=== PATIENT | female | born 1975 | race Two or more races ===

== ENCOUNTER 2016-07-21 13:00 | Emergency (ER) | payer MEDICAID ==
[~2016-07-21] VITALS: Ht 157.5 cm; Wt 85.0 kg
[~2016-07-21 13:00] MED LIST: NAPR500 PO; Z.0.NO CURRENT MEDS
[2016-07-21 13:02] VITALS: BP 122/79; PULSE 84; RESP 16; TEMP 97.7; O2SAT 95
== END 2016-07-21 16:00 | disposition left against medical advice (07) ==
LOC: NED 13:00
DX: R68.89 Other general symptoms and signs (principal)
CPT/HCPCS: 99281

== ENCOUNTER 2017-06-13 22:19 | Emergency (ER) | payer MEDICAID ==
[~2017-06-13] VITALS: Ht 162.6 cm; Wt 88.0 kg
[2017-06-13 22:21] VITALS: BP 131/76; PULSE 100; RESP 16; TEMP 99.1; O2SAT 98
[2017-06-14] MEDS ORDERED: FAMOTIDINE 20 MG/2 ML VIAL IV PUSH ONE (01:30)
[2017-06-14] MEDS ORDERED: SUCRALFATE 1 GM TAB PO ONE ×2 (01:30→02:45)
[2017-06-14] MEDS ORDERED: SODIUM CHLORIDE 0.9% FLUSH 10 ML FLUSH IV FLUSH PRN (01:30)
[2017-06-14] MEDS ORDERED: ONDANSETRON HCL 4 MG/2 ML VIAL IVP ONE (01:30)
[2017-06-14] MEDS: ALUMINUM/MAGNESIUM/SIMETH 30 ML CUP PO ONE ×2 (01:42→02:06)
[2017-06-14] MEDS: LIDOCAINE VISCOUS 2% SOLN 15 ML UDC PO ONE ×2 (01:42→02:06)
[2017-06-14 02:17] LABS: AUTOMATED NEUTROPHIL # 5.1 TH/MM3 (1.8-7.7); BASOPHIL % 0.6 % (0.0-2.0); EOSINOPHIL # 0.3 TH/MM3 (0-0.4); EOSINOPHIL % 3.3 % (0.0-4.0); HEMATOCRIT 35.9 % (35.0-46.0); HEMOGLOBIN 12.6 GM/DL (11.6-15.3); LYMPHOCYTE # 1.7 TH/MM3 (1.0-4.8); MEAN CELL VOLUME 87.9 FL (80.0-100.0); MEAN CORPUSCULAR HEMOGLOBIN 30.8 PG (27.0-34.0); MONO % 11.6 % (0.0-8.0); MONOCYTE # 0.9 TH/MM3 (0-0.9); NEUT % 63.5 % (16.0-70.0); PLATELET COUNT 310 TH/MM3 (150-450); RED BLOOD COUNT 4.09 MIL/MM3 (4.00-5.30); RED CELL DISTRIBUTION WIDTH 13.1 % (11.6-17.2)
[2017-06-14 02:20] VITALS: BP 106/55; PULSE 77; RESP 20; O2SAT 98
[2017-06-14 02:41] LABS: ALT (GPT) 15 U/L (10-53); AST (GOT) 9 U/L (15-37); BICARBONATE 23.6 MEQ/L (21.0-32.0); BLOOD UREA NITROGEN 6 MG/DL (7-18); CALCIUM 8.7 MG/DL (8.5-10.1); CHLORIDE 102 MEQ/L (98-107); CREATININE 0.42 MG/DL (0.50-1.00); GLOMERULAR FILTRATION RATE 167 ML/MIN (>89); GLUCOSE,RANDOM 97 MG/DL (74-106); LIPASE 91 U/L (73-393); SODIUM (NA) 134 MEQ/L (136-145)
[2017-06-14 02:42] LABS: ALKALINE PHOSPHATASE 64 U/L (45-117); TOTAL BILIRUBIN ADULT 0.2 MG/DL (0.2-1.0); TOTAL PROTEIN 7.5 GM/DL (6.4-8.2)
[2017-06-14] MEDS ORDERED: FAMO1TAB37 PO (02:53)
[2017-06-14] MEDS ORDERED: CARA1SUS3 PO (02:53)
--- NOTE | 2017-06-14 02:53 | PD ---
HPI . Epigastric pain Chief Complaint: Complaint Time Seen by Provider: 00:57 Travel History International Travel<30 days: No Contact w/Intl Traveler<30days: No Traveled to known affect area: No History of Present Illness HPI 41-year-old female who is 8 weeks , notes having severe epigastric burning is keeping her up at night for the past several nights, patient has an acid taste in her mouth as well. Pain is worse with lying down. Patient has tried oral antacids with little relief. Patient denies any hematemesis melena or hematochezia. Patient also denies yohana vomiting, denies fever chills sweats. No vaginal discharge or bleeding. Pain is sharp burning nonradiating PFSH Past Medical History Narrative Medical Past medical history reviewed Heart Rhythm Problems: Yes (ARRTHYMIA, UNKNOWN) Cardiac Catheterization: No High Cholesterol: No Congestive Heart Failure: No Diabetes: No (HYPOGLYCEMIA) Diminished Hearing: No Heparin Induced Thrombocytopen: No Hypertension: No ?: Not : 7 Para: 7 Past Surgical History Abdominal Surgery: Yes (LT OVARY REMOVED) Coronary Artery Bypass Graft: No Gynecologic Surgery: Yes (CONE AND LEEP ) Family History Family Myocardial Infarction: Yes (GRANDFATHER) Social History Alcohol Use: No Tobacco Use: No Substance Use: No Allergies-Medications (Allergen,Severity, Reaction): Coded Allergies: No Known Allergies (Unverified , 02/03/14) Reported Meds & Prescriptions Reported Meds & Active Scripts Active No Active Prescriptions or Reported Medications Narrative Medication Allergies and medications reviewed Review of Systems Except as stated in HPI: all other systems reviewed are Neg General / Constitutional: No: Fever Eyes: No: Visual changes HENT: No: Headaches Cardiovascular: No: Chest Pain or Discomfort Respiratory: No: Shortness of Breath Gastrointestinal: Positive: Nausea, Abdominal Pain, No: Vomiting, Diarrhea, Hematemesis, Hematochezia, Constipation Genitourinary: No: Dysuria Musculoskeletal: No: Pain Skin: No Rash Neurologic: No: Weakness Psychiatric: No: Depression Endocrine: No: Polydipsia Hematologic/Lymphatic: No: Easy Bruising Physical Exam Narrative GENERAL: Awake alert oriented 3 no acute distress SKIN: Warm and dry. Color is normal no diaphoresis cyanosis or pallor HEAD: Atraumatic. Normocephalic. EYES: Pupils equal and round. No scleral icterus. No injection or drainage. ENT: No nasal bleeding or discharge. Mucous membranes pink and moist. NECK: Trachea midline. No JVD. Supple full range of motion CARDIOVASCULAR: Regular rate and rhythm. S1-S2 no murmurs rubs or gallops RESPIRATORY: No accessory muscle use. Clear to auscultation. Breath sounds equal bilaterally. GASTROINTESTINAL: Abdomen soft, non-tender, nondistended. Hepatic and splenic margins not palpable. MUSCULOSKELETAL: Extremities without clubbing, cyanosis, or edema. No obvious deformities. NEUROLOGICAL: Awake and alert. No obvious cranial nerve deficits. Motor grossly within normal limits. Five out of 5 muscle strength in the arms and legs. Normal speech. PSYCHIATRIC: Appropriate mood and affect; insight and judgment normal. Data Data Last Documented VS Vital Signs Date Time Temp Pulse Resp B/P (MAP) Pulse Ox O2 Delivery O2 Flow Rate FiO2 06/14/17 02:20 77 20 106/55 (72) 98 Room Air 06/13/17 22:21 99.1 Orders Orders Complete Blood Count With Diff (06/14/17 01:16) Comprehensive Metabolic Panel (06/14/17 01:16) Lipase (06/14/17 01:16) Iv Access Insert/Monitor (06/14/17 01:16) Ecg Monitoring (06/14/17 01:16) Oximetry (06/14/17 01:16) Ondansetron Inj (Zofran Inj) (06/14/17 01:30) Sodium Chloride 0.9% Flush (Ns Flush) (06/14/17 01:30) Famotidine Inj (Pepcid Inj) (06/14/17 01:30) Al-Mag Hy-Si 40-40-4 Mg/Ml Liq (Mag-Al P (06/14/17 01:30) Lidocaine 2% Viscous (Xylocaine 2% Visco (06/14/17 01:30) Ed Urine Pregnancytest Poc (06/14/17 01:16) Sucralfate (Carafate) (06/14/17 01:30) Labs Laboratory Tests Test 06/14/17 01:38 White Blood Count 8.0 TH/MM3 Red Blood Count 4.09 MIL/MM3 Hemoglobin 12.6 GM/DL Hematocrit 35.9 % Mean Corpuscular Volume 87.9 FL Mean Corpuscular Hemoglobin 30.8 PG Mean Corpuscular Hemoglobin Concent 35.0 % Red Cell Distribution Width 13.1 % Platelet Count 310 TH/MM3 Mean Platelet Volume 8.0 FL Neutrophils (%) (Auto) 63.5 % Lymphocytes (%) (Auto) 21.0 % Monocytes (%) (Auto) 11.6 % Eosinophils (%) (Auto) 3.3 % Basophils (%) (Auto) 0.6 % Neutrophils # (Auto) 5.1 TH/MM3 Lymphocytes # (Auto) 1.7 TH/MM3 Monocytes # (Auto) 0.9 TH/MM3 Eosinophils # (Auto) 0.3 TH/MM3 Basophils # (Auto) 0.0 TH/MM3 CBC Comment DIFF FINAL Differential Comment Blood Urea Nitrogen 6 MG/DL Creatinine 0.42 MG/DL Random Glucose 97 MG/DL Total Protein 7.5 GM/DL Albumin 3.0 GM/DL Calcium Level 8.7 MG/DL Alkaline Phosphatase 64 U/L Aspartate Amino Transf (AST/SGOT) 9 U/L Alanine Aminotransferase (ALT/SGPT) 15 U/L Total Bilirubin 0.2 MG/DL Sodium Level 134 MEQ/L Potassium Level 3.6 MEQ/L Chloride Level 102 MEQ/L Carbon Dioxide Level 23.6 MEQ/L Anion Gap 8 MEQ/L Estimat Glomerular Filtration Rate 167 ML/MIN Lipase 91 U/L MDM Medical Decision Making Medical Screen Exam Complete: Yes Emergency Medical Condition: Yes Medical Record Reviewed: Yes Differential Diagnosis Reflux esophagitis, gastritis, pancreatitis, choledocholithiasis Narrative Course All left reviewed, no significant abnormalities Patient significantly improved with Maalox lidocaine and Carafate orally, Pepcid IV. Diagnosis Primary Impression: Gastritis Qualified Codes: K29.00 - Acute gastritis without bleeding Patient Instructions: Gastritis (ED), General Instructions Additional Instructions: Pepcid 20 mg twice daily. Carafate 1 g 3 times daily. Follow-up with her doctor/[employer] [employer]. Return for worsening Scripts Sucralfate Liq (Carafate Liq) 1 Gm/10 Ml Susp 1 GM PO TID for Duodenal ulcer, #900 ML 0 Refills on empty stomach Prov: Danny Mathews MD 06/14/17 Famotidine (Pepcid) 20 Mg Tab 20 MG PO BID, #60 TAB 0 Refills Prov: Danny Mathews MD 06/14/17 Disposition: 01 DISCHARGE HOME Condition: Stable Danny Mathews MD Jun 14, 2017 02:53
== END 2017-06-14 03:12 | disposition home or self-care (01) ==
LOC: NEPC 22:19
DX: O26.891 Other specified pregnancy related conditions, first trimester (principal); K29.00 Acute gastritis without bleeding
CPT/HCPCS: 80053; 83690; 84703; 85025; 96374; 96375; 99284; J2405

== ENCOUNTER → 2017-10-10 | Outpatient (CLI) | payer MEDICAID ==
[~2017-10-10] MED LIST changes: +CARA1SUS3 PO; +FAMO1TAB37 PO; -NAPR500 PO; -Z.0.NO CURRENT MEDS
== END ==
LOC: HPND 09:33
PROVIDERS: ATTEND Obstetrics & Gynecology
DX: O09.522 Supervision of elderly multigravida, second trimester (principal); O99.212 Obesity complicating pregnancy, second trimester; E66.09 Other obesity due to excess calories; Z68.36 Body mass index [BMI] 36.0-36.9, adult; O40.2XX0 Polyhydramnios, second trimester, not applicable or unspecified
CPT/HCPCS: 76811; 76825; 76827; 93325

== ENCOUNTER → 2017-11-08 | Outpatient (CLI) | payer MEDICAID | LOC: HPND 08:56 | PROVIDERS: ATTEND Obstetrics & Gynecology | DX: O09.523 Supervision of elderly multigravida, third trimester (principal) | CPT/HCPCS: 76816 ==

== ENCOUNTER 2017-11-13 00:40 | Emergency (ER) | payer MEDICAID ==
--- NOTE | 2017-11-13 01:13 | PD ---
HPI Chief Complaint pelvic pressure Travel History International Travel<30 Days: No Contact w/Intl Traveler<30Days: No Known Affected Area: No History of Present Illness HPI 42-year-old 007, IUP at 32.0 new care complicated by grand multiparity, advanced maternal age, history of large for gestational age 's with all of her babies weighing 10-11 pounds The patient presents complaining of pelvic pressure started yesterday morning. She said the pressure was constant throughout the day made her feel like she needed to have a bowel movement and push. There is no aggravating or alleviating factors to the pressure. There are no attempted treatments except to drink a lot of water. 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 She reports that she is urinating frequently as she was drinking a lot of water thinking that that would result resolve the pressure. She reports good movement. She denies any leaking of fluid or vaginal bleeding. She denies any painful contractions or cramping. She has no other obstetrical complaints. Weeks Gestation: 32 Para: 7 : 8 History Past Medical History Narrative Medical Obesity Obstetric History Obstetric History [id number] All babies were macrosomic weighing 10-11 pounds Her last delivery was 12 years ago Past Surgical History Narrative Surgical LEEP, CKC, left oophorectomy for dermoid cyst Family History Family History: Negative Social History Alcohol Use: No Tobacco Use: No Substance Abuse: No Allergies-Medications (Allergen,Severity, Reaction): Coded Allergies: No Known Allergies (Unverified , 02/03/14) Home Meds Active Scripts Sucralfate Liq (Carafate Liq) 1 Gm/10 Ml Susp, 1 GM PO TID for Duodenal ulcer, # 900 ML 0 Refills on empty stomach Prov:Danny Mathews MD 06/14/17 Famotidine (Pepcid) 20 Mg Tab, 20 MG PO BID, #60 TAB 0 Refills Prov:Danny Mathews MD 06/14/17 Review of Systems Except as stated in HPI: all other systems reviewed are Neg Physical Exam Narrative GENERAL: Well-nourished, well-developed patient. SKIN: Warm and dry. HEAD: Normocephalic and atraumatic. EYES: No scleral icterus. No injection or drainage. ENT: No nasal drainage noted. Mucous membranes pink. Airway patent. NECK: Supple, trachea midline. No JVD. CARDIOVASCULAR: Regular rate and rhythm without murmurs, gallops, or rubs. RESPIRATORY: Breath sounds equal bilaterally. No accessory muscle use. BREASTS: Deferred ABDOMEN/GI: Abdomen soft, non-tender, bowel sounds present, no rebound, no guarding Gravid GENITOURINARY: External Genitalia: intact and normal in appearance. Normal BUS. No cervical or vaginal masses noted. Grossly normal rugated. Physiologic discharge. fibronectin was obtained prior to vaginal examination. Vaginal examination the cervix is closed, about 30% effaced (cervix about 3 cm long). -3 station. Repeat examination without change FHT's: heart tones are in the 130s with moderate coding quality analyst variability, good accelerations, and no decelerations with a reactive NST and category 1 FHR tracing. EXTREMITIES: No cyanosis or edema. BACK: Nontender without obvious deformity. NEUROLOGICAL/musculoskeletal: Awake and alert. Motor and sensory grossly within normal limits. Grossly normal muscle strength in all muscle groups. Normal speech. Grossly normal gait and range of motion Psychiatric: Normal memory and affect MDM Plan Assessment/plan: 1. IUP at 32.0 2. Grand multiparity 3. Pelvic pressure: There is no evidence of labor at this time. fibronectin was obtained and was negative. Vaginal examination with a closed cervix that is approximately 3 cm long by palpation. Strict labor precautions. Light activity and pelvic rest were given. Discussed that part of her symptoms may be due to her grand multiparity and age as her last delivery was 11-12 years ago. Comfort measures given. Vistaril 100mg given to assist with rest tonight. 4. well-being: Reassuring testing with reactive NST category 1 heart rate tracing FHR is reassuring and appropriate for gestational age. kick counts daily 5. Obesity 6. History of LEEP and CKC 7. Follow-up with primary OB in 2 days or sooner if needed Diagnosis Diagnosis: Primary Impression: 32 weeks gestation of Additional Impression: False labor Disposition: DISCHARGE HOME Condition: Renu Nix MD Nov 13, 2017 01:13
[2017-11-13 01:45] LABS: AMORPHOUS SEDIMENT, URINE RARE; BACTERIA, URINE OCC /hpf; BILIRUBIN, URINE NEG (NEG); BLOOD, URINE TRACE (NEG); GLUCOSE,URINE NEG (NEG); KETONE, URINE NEG (NEG); MUCUS URINE FEW /lpf (OCC); NITRITE,URINE NEG (NEG); PH, URINE 6.5 (5.0-8.5); SQUAMOUS EPITHELIAL CELL URINE 9 /hpf (0-5); URINE COLOR YELLOW (YELLW/STRAW); URINE LEUKOCYTE ESTERASE NEG (NEG)
[2017-11-13 02:38] VITALS: RESP 18
== END 2017-11-13 03:46 | disposition home or self-care (01) ==
LOC: HOBED 00:40
DX: O47.03 False labor before 37 completed weeks of gestation, third trimester (principal); O99.213 Obesity complicating pregnancy, third trimester; O09.523 Supervision of elderly multigravida, third trimester; O09.43 Supervision of pregnancy with grand multiparity, third trimester; Z3A.32 32 weeks gestation of pregnancy
CPT/HCPCS: 81001; 82731; 99283